=== PATIENT | male | born 1955 | race Caucasian/White ===

== ENCOUNTER → 2017-05-12 | Outpatient (CLI) | payer MEDICARE ==
--- NOTE | ~2017-05-12 | CR63 ---
[facility] A Service of [facility] & [facility] RADIOLOGY TEXT RESULTS PATIENT: POLI DILLON LOCATION: [facility] : 53 UNIT #: [id number] AGE: [address]: Michelle Snyder SEX: M ORDER DR: [id number] [address] [id number] O MR#: [id number] Acc #: [id number] NAME: POLI DILLON : 1955 SEX: M STUDY DATE/TIME: 05/12/2017 11:20 UNIT: [facility] ROOM: STUDY DESCRIPTION: CR Chest 2 View Attending Physician: Michelle Snyder A.P.R.N. Referring Physician: Michelle Snyder A.P.R.N. Ordering Physician: Michelle Snyder A.P.R.N. Primary Care Physician: Lilia Phillips M.D. MEDICAL IMAGING REPORT This report is preliminary unless electronic signature is present. EXAM Chest, PA and lateral, 05/12/2017. HISTORY Cough and chest pain for 1 month, chest congestion, short of breath. Benign essential hypertension. Smoking history. FINDINGS The cardiac and mediastinal structures are stable compared with 03/29/2017, status post median sternotomy. Atelectasis or fibrosis is seen at the left lung base with associated pleural thickening laterally. The lungs are otherwise clear. There are no pleural effusions. IMPRESSION Prior median sternotomy. No active pulmonary disease. Dictated by... Jose Oates M.D. THIS IS AN ELECTRONICALLY VERIFIED REPORT Jose Oates M.D. at 05/13/2017 2:16 PM RUSTY/dayanara TD: 05/12/2017 23:58 JOB #: [id number] MEDICAL IMAGING REPORT Page 1 of 1
== END | disposition home or self-care (01) ==
LOC: SRAD 11:14
DX: R05 Cough (principal); Z98.890 Other specified postprocedural states
CPT/HCPCS: 71020